=== PATIENT | female | born 1985 | race Caucasian/White ===

== ENCOUNTER 2016-10-08 07:33 | Inpatient (IN) | payer OTHER ==
[~2016-10-08] VITALS: Ht 175.3 cm; Wt 121.6 kg
[~2016-10-08 07:33] MED LIST: PREN-385 PO
[2016-10-08] MEDS ORDERED: LACTATED RINGERS 1,000 ML IV SCH (07:49)
[2016-10-08] MEDS ORDERED: CITRIC ACID/SODIUM CITRATE 30 ML UDC PO SCH (07:50)
[2016-10-08 08:39] LABS: HEMATOCRIT 36.9 % (36-48); HEMOGLOBIN 11.7 g/dL (12.0-16.0); MEAN CORPUSCULAR HEMOGLOBIN 27 pg (27-31); MEAN CORPUSCULAR HGB CONC 32 g/dL (33-37); MEAN CORPUSCULAR VOLUME 83 fL (80-94); PLATELET COUNT (AUTO) 226 K/uL (140-450); RED BLOOD CELL COUNT(AUTO) 4.43 MIL/uL (4.20-5.40); RED CELL DISTRIBUTION WIDTH 14.3 % (11.6-13.7); WHITE BLOOD COUNT (AUTO) 11.7 K/uL (4.8-10.8)
[2016-10-08 08:57] LABS: ALBUMIN 2.6 g/dL (3.4-5.0); ANION GAP 13.1 (8-16); CALCIUM 8.1 mg/dL (8.5-10.1); CARBON DIOXIDE 24.1 mmol/L (21-32); CREATININE 0.5 mg/dL (0.6-1.3); POTASSIUM 4.2 mmol/L (3.5-5.1); TOTAL BILIRUBIN 0.2 mg/dL (0.0-1.0); TOTAL PROTEIN, SERUM 6.9 g/dL (6.4-8.2)
[2016-10-08 09:00] VITALS: BP 120/59
--- NOTE | 2016-10-08 09:00 | NUR ---
PATIENT HAS BEEN SCREENED AND CATEGORIZED LOW NUTRITION RISK. PATIENT WILL BE SEEN WITHIN 7 DAYS OF ADMISSION. 10/14/[address]
[2016-10-08 09:35] LABS: NEUTROPHILS % (MANUAL) 71 (43-65)
[2016-10-08 09:36] LABS: BASOPHILS % (MANUAL) 1 % (0-2); EOSINOPHILS % (MANUAL) 2 % (0-4); LYMPHOCYTES % (MANUAL) 21 % (20-46); MONOCYTES % (MANUAL) 5 % (5-12); PLATELET ESTIMATE ADEQUATE
[2016-10-08 09:50] LABS: APPEARANCE,URINE CLOUDY (CLEAR); BILIRUBIN,URINE NEGATIVE (NEGATIVE); BLOOD, URINE TRACE-I (NEGATIVE); COLOR,URINE YELLOW (YELLOW); LEUKOCYTE ESTERASE ,URINE 2+ (NEGATIVE); PH,URINE 5.5 (5.0-9.0); PROTEIN,URINE NEGATIVE (NEGATIVE); UGLUCOSE NEGATIVE (NEGATIVE); UROBILINOGEN,URINE 0.2 EU/dL (0.2 - 1)
[2016-10-08 09:57] LABS: RBC,URINE 0-2 /HPF (0-5)
[2016-10-08 09:58] LABS: SQUAMOUS EPITHELIAL CELL,UR 0-3 (FEW) /LPF (0-3 (FEW))
[2016-10-08 09:59] LABS: BACTERIA,URINE 1+ /HPF (None Seen); NITRITE, URINE POSITIVE (NEGATIVE)
[2016-10-08] MEDS ORDERED: NALOXONE 0.4 MG/ML VIAL ONE (10:20)
[2016-10-08] MEDS ORDERED: ONDANSETRON 4 MG/2 ML VIAL ONE (10:46)
[2016-10-08] MEDS ORDERED: OXYTOCIN 10 UNITS/ML VIAL ONE (10:46)
[2016-10-08] MEDS ORDERED: ePHEDrine 50 MG/ML VIAL ONE (10:46)
[2016-10-08] MEDS ORDERED: MORPHINE PRES FREE 10 MG/10 ML AMP IV ONE (10:58)
[2016-10-08] MEDS ORDERED: fentaNYL 0.05 MG/ML VIAL ONE (10:58)
[2016-10-08] MEDS ORDERED: NALOXONE 0.4 MG/ML VIAL IVP PRN ×3 (11:20)
[2016-10-08] MEDS ORDERED: ONDANSETRON 4 MG/2 ML VIAL IVP PRN ×2 (11:20)
[2016-10-08] MEDS ORDERED: diphenhydrAMINE 50 MG/ML VIAL IVP PRN (11:20)
[2016-10-08] MEDS ORDERED: KETOROLAC 60 MG/2 ML VIAL IM PRN (11:20)
[2016-10-08] MEDS ORDERED: NALBUPHINE 10 MG/ML AMP IVP PRN (11:20)
[2016-10-08] MEDS ORDERED: OXYTOCIN 20 UNITS/LR PREMIX 1,000 ML IV ONE (13:06)
[2016-10-08] MEDS ORDERED: HYDROmorphone 1 MG/ML AMP IVP PRN (14:55)
[2016-10-08] MEDS ORDERED: KETOROLAC 30 MG/ML VIAL IVP PRN (14:55)
[2016-10-08] MEDS ORDERED: MEASLES, MUMPS, AND RUBELLA 1 VIAL SQVAC PRN (14:55)
[2016-10-08] MEDS: OXYTOCIN 20 UNITS/LR PREMIX 1,000 ML IV SCH (21:38)
[2016-10-09] MEDS: OXYTOCIN 20 UNITS/LR PREMIX 1,000 ML IV SCH (06:11)
[2016-10-09 08:12] LABS: BASOPHILS # (AUTO) 0.1 K/uL (0.00-0.22); EOSINOPHILS # (AUTO) 0.2 K/uL (0-0.4); EOSINOPHILS % (AUTO) 1.8 % (0.0-4.0); HEMATOCRIT 31.4 % (36-48); HEMOGLOBIN 10.1 g/dL (12.0-16.0); LYMPHOCYTES # (AUTO) 1.8 K/uL (2.5-16.5); LYMPHOCYTES % (AUTO) 12.8 % (20.5-51.1); MEAN CORPUSCULAR HEMOGLOBIN 27 pg (27-31); MEAN CORPUSCULAR HGB CONC 32 g/dL (33-37); MEAN CORPUSCULAR VOLUME 84 fL (80-94); MONOCYTES # (AUTO) 0.6 K/uL (0.8-1.0); MONOCYTES % (AUTO) 4.1 % (1.7-9.3); NEUTROPHILS # (AUTO) 11.1 K/uL (1.8-7.7); NEUTROPHILS % (AUTO) 80.3 % (42.2-75.2); PLATELET COUNT (AUTO) 191 K/uL (140-450); RED BLOOD CELL COUNT(AUTO) 3.76 MIL/uL (4.20-5.40); RED CELL DISTRIBUTION WIDTH 14.2 % (11.6-13.7); WHITE BLOOD COUNT (AUTO) 13.8 K/uL (4.8-10.8)
[2016-10-10] MEDS ORDERED: SODIUM PHOSPHATE 118 ML ENEM RC PRN (08:00)
[2016-10-10] MEDS ORDERED: SIMETHICONE 80 MG TAB.CHEW PO PRN (08:00)
[2016-10-10] MEDS ORDERED: IBUPROFEN 600 MG TAB PO PRN (08:00)
[2016-10-10] MEDS ORDERED: BISACODYL 5 MG TABEC PO PRN (08:00)
[2016-10-10] MEDS ORDERED: oxyCODONE/APAP 5/325 MG 1 TAB TAB PO PRN (08:00)
[2016-10-10] MEDS ORDERED: DOCUSATE SODIUM 100 MG GELCAP PO PRN (14:55)
[2016-10-12] MEDS ORDERED: FERR325E14 PO (16:59)
[2016-10-12] MEDS ORDERED: IBUP-1842 PO (17:02)
== END 2016-10-12 18:15 | disposition home or self-care (01) | DRG 540 ==
LOC: MLD 07:33 → MFCC 13:34
PROVIDERS: ADMIT Obstetrics & Gynecology; ATTEND Obstetrics & Gynecology
PROC: 10D00Z1 Extraction of Products of Conception, Low, Open Approach (ICD-10-PCS; principal; 2016-10-08 10:30)
DX: O34.211 Maternal care for low transverse scar from previous cesarean delivery (principal); Z37.0 Single live birth; Z3A.38 38 weeks gestation of pregnancy
CPT/HCPCS: 36415; 51702; 80053; 81001; 85025; 86886; 86900; 86901; 87081; 87086; 90715; J0690; J1885; J2270; J2310; J2405; J2590; J3010; J7060; J7120